=== PATIENT | male | born 1960 | race Caucasian/White ===

== ENCOUNTER 2021-11-14 20:42 | Emergency (ER) | payer MEDICARE, OTHER ==
[~2021-11-14] VITALS: Ht 177.8 cm; Wt 77.0 kg
[~2021-11-14 20:42] MED LIST: METH-822 PO
[2021-11-14 20:46] VITALS: BP 132/85
== END 2021-11-15 00:01 | disposition home or self-care (01) ==
LOC: EMS 20:50
DX: S06.0X0A Concussion without loss of consciousness, initial encounter (principal); S40.012A Contusion of left shoulder, initial encounter; M25.512 Pain in left shoulder; F19.90 Other psychoactive substance use, unspecified, uncomplicated; Y04.8XXA Assault by other bodily force, initial encounter; Y93.89 Activity, other specified; Y92.89 Other specified places as the place of occurrence of the external cause; Y99.8 Other external cause status
CPT/HCPCS: 70450; 70486; 99284